=== PATIENT | female | born 1985 | race Two or more races ===

== ENCOUNTER 2024-12-28 06:25 | Day surgery (SDC) | payer BC, SELFPAY | END 2024-12-28 12:25 | disposition home or self-care (01) | LOC: GI 06:25 | PROVIDERS: ATTENDING PHYSICIAN Internal Medicine Gastroenterology | DX: Z12.11 Encounter for screening for malignant neoplasm of colon (principal); D50.9 Iron deficiency anemia, unspecified; K64.8 Other hemorrhoids; R13.10 Dysphagia, unspecified; K44.9 Diaphragmatic hernia without obstruction or gangrene | CPT/HCPCS: 43235; G0121; 88305 ==